=== PATIENT | female | born 1980 | race Two or more races ===

== ENCOUNTER 2021-11-14 06:29 | Day surgery (SDC) | payer OTHER ==
[~2021-11-14 06:29] MED LIST: CLONAZEPAM0.5 MG PO; CYMBALTA60 MG PO; INDERAL LA80 MG PO; TRAZODONE HCL100 MG PO
[2021-11-14] MEDS ORDERED: NAPR500T14 PO (14:45)
[2021-11-14] MEDS ORDERED: MORGIDOX100 MG PO (14:45)
== END 2021-11-14 16:45 | disposition home or self-care (01) ==
LOC: CIR.AMB 06:29
PROVIDERS: ATTEND Obstetrics & Gynecology
DX: N84.0 Polyp of corpus uteri (principal); N99.81 Other intraoperative complications of genitourinary system; Z20.822 Contact with and (suspected) exposure to COVID-19